=== PATIENT | female | born 1975 | race Caucasian/White ===

== ENCOUNTER 2018-10-24 14:03 | Emergency (ER) | payer OTHER ==
[~2018-10-24] VITALS: Ht 165.1 cm; Wt 100.0 kg
[2018-10-24] MEDS ORDERED: PROZ10CA7 PO (14:11)
[2018-10-24 14:23] VITALS: BP 151/87
--- NOTE | 2018-10-24 14:36 | REP ---
Left wrist series: Four views. History: Crush injury. Findings: Four views of the left wrist show overall normal mineralization. Bones, joints, and soft tissues are unremarkable. No fractures seen. Impression: Negative left wrist radiographs. Electronically Signed by Figueroa Ball MD 10/24/2018 02:28 P
== END 2018-10-24 14:43 | disposition home or self-care (01) ==
LOC: M ED 14:03
DX: S60.212A Contusion of left wrist, initial encounter (principal); S60.812A Abrasion of left wrist, initial encounter; W23.0XXA Caught, crushed, jammed, or pinched between moving objects, initial encounter; Y92.018 Other place in single-family (private) house as the place of occurrence of the external cause; M06.9 Rheumatoid arthritis, unspecified; F33.9 Major depressive disorder, recurrent, unspecified; Z98.84 Bariatric surgery status; Z79.899 Other long term (current) drug therapy; Z88.0 Allergy status to penicillin